=== PATIENT | female | born 1985 | race Caucasian/White ===

== ENCOUNTER 2018-04-16 15:57 | Emergency (ER) | payer MEDICAID, OTHER ==
--- NOTE | 2018-04-16 17:45 | UC ---
Respiratory Complaint HPI - HPI Summary HPI Summary: SEVERAL WEEKS OF PRODUCTIVE COUGH, PLEURITIC PAIN DOWN IN THE BASES AND INTERMITTENT SHORTNESS OF BREATH. HAS SOME SLIGHT SORE THROAT WITH COUGHING AND HAS BEEN COUGHING TO THE POINT OF DRY HEAVING. HISTORY OF ASTHMA AND HAS FELT WHEEZY PAST FEW DAYS. OVERALL MALAISE AND ACHINESS. FEELS SHE IS GETTING WORSE. NO FEVER. UTD TDAP. CURRENTLY HER 4 YEAR OLD. - History of Current Complaint Chief Complaint: UCRespiratory Stated Complaint: COUGH Time Seen by Provider: 04/16/18 17:30 Hx Obtained From: Patient Hx Last Menstrual Period: 45 days Onset/Duration: Gradual Onset, Lasting Weeks, Still Present Timing: Constant Severity Initially: Moderate Severity Currently: Moderate Pain Intensity: 6 Pain Scale Used: 0-10 Numeric Character: Cough: Productive Aggravating Factors: Nothing Alleviating Factors: Nothing Associated Signs And Symptoms: Positive: Dyspnea, Wheezing, URI, Nasal Congestion. Negative: Fever, Chills - Allergies/Home Medications Allergies/Adverse Reactions: Allergies Allergy/AdvReac Type Severity Reaction Status Date / Time gluten Allergy migraine Verified 04/16/18 17:27 trigger peanut Allergy migraine Verified 04/16/18 17:27 trigger PMH/Surg Hx/FS Hx/Imm Hx - Additional Past Medical History Additional PMH: FIBROMYALGIA Psychological History: Anxiety, Depression, Post Traumatic Stress Disorder - Surgical History Surgical History: Yes Surgery Procedure, Year, and Place: RIGHT salpingectomy (after ectopic) August 2013 - Family History Known Family History: Negative: Hypertension - Social History Alcohol Use: None Substance Use Type: None Smoking Status (MU): Never Smoked Tobacco - Immunization History Most Recent Influenza Vaccination: encouraged in office Most Recent Tetanus Shot: fall 2014 Most Recent Pneumonia Vaccination: not indicated Review of Systems Constitutional: Fatigue ENT: Sore Throat, Nasal Discharge Respiratory: Shortness Of Breath, Cough, Other - WHEEZE Cardiovascular: Negative Gastrointestinal: Negative All Other Systems Reviewed And Are Negative: Yes Physical Exam Triage Information Reviewed: Yes Appearance: No Pain Distress, Well-Nourished, Ill-Appearing - MILD Vital Signs: Initial Vital Signs Temp 98.9 F 04/16/18 17:18 Pulse 99 04/16/18 17:18 Resp 17 04/16/18 17:18 Pulse Ox 100 04/16/18 17:18 Vital Signs Reviewed: Yes Eyes: Positive: Conjunctiva Clear ENT: Positive: Hearing grossly normal, Pharynx normal, TMs normal Neck: Positive: Supple, Nontender, No Lymphadenopathy Respiratory Exam: Normal Cardiovascular Exam: Normal Abdomen Description: Positive: Soft Musculoskeletal: Positive: No Edema Neurological: Positive: Alert Psychological: Positive: Age Appropriate Behavior Skin: Negative: rashes UC Diagnostic Evaluation - Laboratory O2 Sat by Pulse Oximetry: 100 - Radiology Radiology Interpretation Completed By: Radiologist Summary of Radiographic Findings: CXR UNREMARKABLE Respiratory Course/Dx - Course Course Of Treatment: GIVEN CLINICAL PRESENTATION CONCERN FOR PERTUSSIS. WILL TX ACCORDINGLY ESPECIALLY PT HAS A TODDLER AT HOME WHO IS NOT FULLY VACCINATED. SWAB OBTAINED FOR PCR. - Differential Dx/Diagnosis Provider Diagnoses: ACUTE BRONCHITIS Discharge - Sign-Out/Discharge Documenting (check all that apply): Patient Departure All imaging exams completed and their final reports reviewed: Yes - Discharge Plan Condition: Stable Disposition: HOME Prescriptions: Albuterol HFA INHALER* [Ventolin HFA Inhaler*] 2 puff INH Q4H PRN #1 mdi PRN Reason: Shortness Of Breath Azithromyxin JANICE (NF) [Z-Janice (Zithromax) 250 mg tabs #6] 2 tab PO .TODAY, THEN 1 DAILY #6 tab predniSONE TAB* [Deltasone 20 MG TAB*] 40 mg PO DAILY #10 tab Patient Education Materials: Acute Bronchitis (ED), Pertussis (ED) Referrals: Bin Adrian DO [Primary Care Provider] - 1 Week Additional Instructions: THERE IS A GOOD CHANCE YOU HAVE A VIRAL ILLNESS BUT GIVEN THE PROLONGED NATURE OF YOUR COUGH IN ADDITION TO YOUR REPORTED INSPIRATORY WHOOP, POSTTUSSIVE HEAVING AND 4-YEAR-OLD AT HOME WILL COVER FOR PERTUSSIS WITH DAILY AZITHROMYCIN FOR 5 DAYS. SWAB FOR PERTUSSIS OBTAINED TODAY. CHEST XRAY UNREMARKABLE. PREDNISONE WILL HELP WITH AIRWAY INFLAMMATION AND YOUR ALBUTEROL HAS BEEN REFILLED. FOLLOW-UP WITH YOUR PCP OR HERE IN 1-2 WEEKS IF YOU ARE NOT IMPROVING EXPECTED. - Billing Disposition and Condition Condition: STABLE Disposition: Home
--- NOTE | 2018-04-16 17:59 | RAD ---
HISTORY: COUGH, SOB COMPARISONS: None VIEWS: 4: Frontal dual-energy and lateral views of the chest. FINDINGS: CARDIOMEDIASTINAL SILHOUETTE: The cardiomediastinal silhouette is normal. SOLIS: The solis are normal. PLEURA: The costophrenic angles are sharp. No pleural abnormalities are noted. LUNG PARENCHYMA: The lungs are clear. ABDOMEN: The upper abdomen is clear. There is no subphrenic gas. BONES AND SOFT TISSUES: No bone or soft tissue abnormalities are noted. OTHER: None. IMPRESSION: NO ACTIVE CARDIOPULMONARY DISEASE.
[2018-04-18 17:53] LABS: Bordetella pertussis PCR Negative
== END 2018-04-16 18:35 | disposition home or self-care (01) ==
LOC: UCEAST 15:57
DX: J20.9 Acute bronchitis, unspecified (principal)
CPT/HCPCS: 71046; 84702; 87798; 99212; G0463